=== PATIENT | female | born 1940 | race Caucasian/White ===

== ENCOUNTER 2021-01-24 13:50 | Outpatient (CLI) | payer MEDICARE, OTHER | END 2021-01-24 13:51 | disposition critical access hospital (66) | LOC: EMS 13:50 | DX: S09.90XA Unspecified injury of head, initial encounter (principal); W10.9XXA Fall (on) (from) unspecified stairs and steps, initial encounter | CPT/HCPCS: A0425; A0429 ==

== ENCOUNTER 2021-01-24 14:19 | Emergency (ER) | payer MEDICARE, OTHER ==
[2021-01-24 14:17] VITALS: BP 157/75
--- NOTE | 2021-01-24 14:43 | ED Physician Documentation ---
History of Present Illness - Stated complaint Stated Complaint: GLF/HEAD INJURY - Chief complaint Chief Complaint: Trauma Hd/Nk - Additonal information Additional information: 80-year-old female presents the emergency department as a modified trauma after ground-level fall. She was walking [place] the [place], tripped on her pants and fell backwards striking her head. She is anticoagulated on Eliquis secondary to a history of atrial flutter. She denies any loss of consciousness. She presents here in a rigid cervical collar. She is denying back neck pain leg pain or joint pain. Review of Systems Constitutional: denies: Fever, Chills Eyes: reports: Reviewed and negative Nose: reports: Reviewed and negative Throat: reports: Reviewed and negative Cardiac: reports: Reviewed and negative Respiratory: reports: Reviewed and negative GI: reports: Reviewed and negative : reports: Reviewed and negative Skin: reports: Laceration (s) (Posterior occiput) Musculoskeletal: denies: Neck pain, Back pain, Extremity pain, Joint pain, Extremity swelling Neurologic: reports: Head injury. denies: Generalized weakness, Numbness, Difficulty speaking, Syncope, Seizure, Confused, Headache, LOC PD PAST MEDICAL HISTORY - Allergies Allergies/Adverse Reactions: Allergies Allergy/AdvReac Type Severity Reaction Status Date / Time No Known Drug Allergies Allergy Verified 01/24/21 14:18 PD ED PE EXPANDED - General General: Alert, No acute distress, Well developed/nourished - Neck Neck: Supple w/out meningeal sx, No tenderness. No: Adenopathy, Soft tissue TTP, Bony TTP, Limited ROM - Cardiac Cardiac: Regular Rate, Radial strong equal, Pedal strong equal, Cap refill < 2 sec. No: Murmur Present - Respiratory Respiratory: Clear to ausultation odalis. No: Distress, Labored - Abdomen Abdomen: Normal Bowel sounds. No: Tender to palpation - Back Back: Normal exam. No: Vertebral tenderness, Soft tissue tenderness - Derm Derm: Laceration(s) (2 cm laceration posterior occiput) - Extremities Extremities: Normal. No: Deformity - Neuro Neuro: Alert and Oriented X 3, CNII-XII intact, CN deficit, Normal gait, Normal finger nose, Normal speech - GCS Eye Opening: Spontaneous Motor: Obeys Commands Verbal: Oriented Total: 15 Results - Vitals Vitals: Vital Signs - 24 hr 01/24/21 14:12 Temperature 36.0 C L Heart Rate 67 Respiratory 16 Rate Blood Pressure 157/75 H O2 Saturation 98 Oxygen O2 Source Room air - Rads (name of study) cervical spine Radiology: Final report received (No acute fracture or subluxation. Multilevel spondylolisthesis throughout the cervical spine likely degenerative. Moderate to severe multilevel degenerative disc disease) ct head Radiology: Final report received (No acute intracranial abnormality. Soft tissue laceration left posterior parietal scalp at the vertex without evidence of underlying fracture.) Procedures - Laceration (location) scalp laceration Length in cm: 2 Wound type: Irregular, Into subcut fat Wound preparation: Chlorhexadine, Irrigated copiously NS Skin layer closure: Parvin (2) Other: Patient tolerated well, No complications, Neurovascular intact PD MEDICAL DECISION MAKING - ED course Complexity details: reviewed results, re-evaluated patient, d/w patient ED course: 80-year-old female presents emergency department as a modified trauma after ground-level fall in which she tripped on her pants when exiting the golf club. She is on Eliquis secondary to history of atrial flutter. She did strike her head and sustained a 2 cm posterior scalp laceration. There was no loss of consciousness. She arrived with a rigid c-collar in place. She denied any headache no loss of consciousness and had no focal neuro deficits. Subsequent CT imaging of the head and cervical spine showed no acute fractures or findings of intracranial hemorrhage. Should be noted that she does have significant degenerative spine changes. Scalp laceration was closed with 2 parvin. Tetanus is up-to-date. Emergent worrisome return precautions discussed. Departure - Departure Disposition: 01 Home, Self Care Clinical Impression: Fall from ground level, Anticoagulated Occipital scalp laceration Qualifiers: Encounter type: initial encounter Qualified Code(s): S01.01XA - Laceration without foreign body of scalp, initial encounter Condition: Stable Record reviewed to determine appropriate education?: Yes Comments: Katarina fontanez are seen in the emergency department today after ground-level fall. Because you are on Eliquis were brought to the emergency department to rule out any bleeding in the brain. The CT scan of your neck and your head does not show any broken bones or bleeding within the brain. You did have a 2 cm posterior scalp laceration. This was closed with 2 parvin. The parvin should be removed in 5 days. This can be done at any urgent care, primary care office or the emergency department. You can shower normally. Apply thin layer of bacitracin after showering. If over the next few days you develop any sudden severe headache, have chest pain, slurred speech facial droop or feel suddenly weak then please return immediately to the ER for a second evaluation
--- NOTE | 2021-01-24 15:06 | CT Report ---
PROCEDURE: HEAD WO INDICATIONS: GLF; anticoagulated TECHNIQUE: Noncontrast 4.5 mm thick angled axial sections acquired from the foramen magnum to the vertex. For r adiation dose reduction, the following was used: automated exposure control, adjustment of mA and/or kV according to patient size. COMPARISON: None. FINDINGS: Image quality: There is mild motion artifact. CSF spaces: There is mild cerebral volume loss with prominence of the ventricles and sulci. Basal ci sterns are patent. No extra-axial fluid collections. Brain: No intracranial hemorrhage, mass, or mass effect. Cunningham-white matter interface is preserved. T here are subcortical and periventricular white matter hypodensities consistent with mild chronic smal l vessel ischemic changes. Skull and face: There is a soft tissue laceration in the left posterior parietal scalp at the vertex with associated subcutaneous hematoma. Calvarium and visualized facial bones are intact, without hammad picious lesions. Sinuses: Visualized sinuses and mastoids are clear. IMPRESSION: 1. No acute intracranial abnormality. 2. Soft tissue laceration in the left posterior parietal scalp at the vertex without evidence of unde rlying fracture. Reviewed by: Bertin Villasenor MD on 01/24/2021 2:05 PM [place] Approved by: Bertin Villasenor MD on 01/24/2021 2:05 PM [facility] Station ID: [id number]
--- NOTE | 2021-01-24 15:08 | CT Report ---
PROCEDURE: CERVICAL SPINE WO INDICATIONS: GLF; anticoagulated TECHNIQUE: Noncontrast 3 mm thick sections acquired from the skull base to the T4 level. Sagittal and coronal r eformats were then constructed. For radiation dose reduction, the following was used: automated exp osure control, adjustment of mA and/or kV according to patient size. COMPARISON: None. FINDINGS: Image quality: Excellent. Bones: No fractures or subluxation. There is straightening of the cervical lordosis. Mild anterolist hesis demonstrated at C2-C3, C3-C4, and C4-C5. There is minimal retrolisthesis at C5-C6. There is mul tilevel moderate to severe degenerative disc disease within the mid and lower cervical spine. Moderat e multilevel facet arthropathy also demonstrated throughout the cervical spine. Visualized superior r ibs are intact. Soft tissues: Prevertebral soft tissues are normal in thickness. No paravertebral hematomas. No ap ical pneumothoraces. IMPRESSION: 1. No acute fracture or subluxation. 2. Multilevel spondylolisthesis throughout the cervical spine likely degenerative in etiology. 3. Moderate to severe multilevel degenerative disc disease in the mid and lower cervical spine as wel l as moderate facet arthropathy throughout the cervical spine. Reviewed by: Bertin Villasenor MD on 01/24/2021 2:07 PM [facility] Approved by: Bertin Villasenor MD on 01/24/2021 2:07 PM [place] Station ID: [id number]
== END 2021-01-24 16:10 | disposition home or self-care (01) ==
LOC: ED 14:19
DX: S01.01XA Laceration without foreign body of scalp, initial encounter (principal); W01.0XXA Fall on same level from slipping, tripping and stumbling without subsequent striking against object, initial encounter; Y93.01 Activity, walking, marching and hiking; Y92.29 Other specified public building as the place of occurrence of the external cause; M43.12 Spondylolisthesis, cervical region; M50.30 Other cervical disc degeneration, unspecified cervical region; I48.92 Unspecified atrial flutter; Z79.01 Long term (current) use of anticoagulants
CPT/HCPCS: 12001; 99283; 99284

== ENCOUNTER 2021-01-29 12:32 | Emergency (ER) | payer MEDICARE, OTHER ==
[2021-01-29 12:42] VITALS: BP 158/66
--- NOTE | 2021-01-29 13:42 | ED Physician Documentation ---
History of Present Illness - Stated complaint Stated Complaint: STAPLE REMOVAL - Chief complaint Chief Complaint: General - History obtained from History obtained from: Patient (80-year-old woman presents for removal of 2 parvin from her scalp. She has not had any trouble with them.) Review of Systems Constitutional: reports: Reviewed and negative Eyes: reports: Reviewed and negative Ears: reports: Reviewed and negative PD PAST MEDICAL HISTORY - Allergies Allergies/Adverse Reactions: Allergies Allergy/AdvReac Type Severity Reaction Status Date / Time No Known Drug Allergies Allergy Verified 01/29/21 12:42 PD ED PE NORMAL - Vitals Vital signs reviewed: Yes - General General: Alert and oriented X 3, No acute distress - HEENT HEENT: PERRL, EOMI, Other (Healing wound on the left occiput with [address]) - Neck Neck: No bony TTP - Neuro Neuro: Alert and oriented X 3, Normal speech Results - Vitals Vitals: Vital Signs - 24 hr 01/29/21 12:39 Temperature 36.4 C L Heart Rate 65 Respiratory 16 Rate Blood Pressure 158/66 H O2 Saturation 97 Oxygen O2 Source Room air PD MEDICAL DECISION MAKING - ED course ED course: 2 parvin removed during exam without issue and counseled on ongoing wound care. Departure - Departure Disposition: 01 Home, Self Care Clinical Impression: Encounter for staple removal Condition: Stable
== END 2021-01-29 13:54 | disposition home or self-care (01) ==
LOC: ED 12:32
DX: Z48.02 Encounter for removal of sutures (principal)

== ENCOUNTER 2021-02-17 13:07 | Outpatient (CLI) | payer MEDICARE, OTHER ==
[2021-02-17 13:35] LABS: CALCIUM, IONIZED 1.2 mmol/L (1.15-1.33); VBG PH 7.386 (7.31-7.41)
[2021-02-17 13:42] LABS: CALCIUM 9.9 mg/dL (8.5-10.3); CREATININE 0.7 mg/dL (0.4-1.0); POTASSIUM 5.3 mmol/L (3.5-5.0)
== END 2021-02-17 13:08 | disposition home or self-care (01) ==
LOC: LAB.N 13:07
PROVIDERS: ATTEND Family Medicine
DX: R00.0 Tachycardia, unspecified (principal)
CPT/HCPCS: 36415; 80048; 82330

== ENCOUNTER 2022-09-05 11:30 | Outpatient (CLI) | payer MEDICARE, OTHER ==
[2022-09-05 17:43] LABS: BASOPHILS # (AUTO) 0.1 10^3/uL (0.0-0.1); BASOPHILS % (AUTO) 1.1 %; EOSINOPHILS # (AUTO) 0.1 10^3/uL (0.0-0.7); EOSINOPHILS % (AUTO) 1.9 %; HCT - HEMATOCRIT 42.6 % (37.0-47.0); HGB - HEMOGLOBIN 13.4 g/dL (12.0-16.0); LYMPHOCYTES % (AUTO) 19.5 %; MEAN CORPUSCULAR HEMOGLOBIN 30.1 pg (27.0-31.0); MEAN CORPUSCULAR HGB CONC 31.5 g/dL (32.0-36.0); MEAN CORPUSCULAR VOLUME 95.7 fL (81.0-99.0); MEAN PLATELET VOLUME 10.6 fL (7.9-10.8); MONOCYTES # (AUTO) 0.5 10^3/uL (0.0-1.0); MONOCYTES % (AUTO) 8.8 %; NEUTROPHILS # (AUTO) 3.6 10^3/uL (1.5-6.6); NEUTROPHILS % (AUTO) 68.5 %; PLT - PLATELET COUNT 285 10^3/uL (130-450); RED BLOOD COUNT 4.45 10^6/uL (4.20-5.40); RED CELL DISTRIBUTION WIDTH 13.2 % (12.0-15.0); WHITE BLOOD COUNT 5.2 x10^3/uL (4.8-10.8)
[2022-09-05 18:10] LABS: THYROID STIMULATING HORMONE 0.99 uIU/mL (0.34-5.60)
[2022-09-05 18:42] LABS: ALBUMIN 4.5 g/dL (3.2-5.5); ALBUMIN/GLOBULIN RATIO 1.4 (1.0-2.2); BILIRUBIN,TOTAL 0.7 mg/dL (0.2-1.0); CALCIUM 9.5 mg/dL (8.5-10.3); CREATININE 0.6 mg/dL (0.4-1.0); POTASSIUM 3.6 mmol/L (3.5-5.0); TOTAL PROTEIN 7.8 g/dL (6.7-8.2)
== END 2022-09-05 11:45 | disposition home or self-care (01) ==
LOC: LAB.N 11:30
PROVIDERS: ATTEND Registered Nurse
DX: R19.7 Diarrhea, unspecified (principal)
CPT/HCPCS: 36415; 80053; 83690; 84443; 85025

== ENCOUNTER 2022-10-15 09:56 | Emergency (ER) | payer MEDICARE, OTHER ==
[2022-10-15 10:09] VITALS: BP 149/75; O2SAT 97
--- NOTE | 2022-10-15 10:11 | ED Physician Documentation ---
PD HPI HEENT - Stated complaint Stated Complaint: LT EAR BLEEDING - Chief complaint Chief Complaint: Heent - History obtained from History obtained from: Patient PD PAST MEDICAL HISTORY - Present Medications Home Medications: Ambulatory Orders Medication Instructions Recorded Confirmed Amoxicillin 500 mg PO TID #21 cap 10/15/22 Cetirizine [ZyrTEC] 10 mg PO DAILY #15 tablet 10/15/22 Tobramycin 2 drops EACHEYE QID #5 ml 10/15/22 - Allergies Allergies/Adverse Reactions: Allergies Allergy/AdvReac Type Severity Reaction Status Date / Time No Known Drug Allergies Allergy Verified 10/15/22 10:01 PD ED PE NORMAL - General General: Alert and oriented X 3, Well developed/nourished - HEENT HEENT: Moist mucous membranes, Pharynx benign. No: Ears normal (right TM still normal color with fluid behind. Left canal with blood and some wax in it. TM with some blood 9 oclock area. Remainder of TM appears intact. No general redness. ) - Neck Neck: Supple, no meningeal sign, No adenopathy - Cardiac Cardiac: RRR, No murmur - Respiratory Respiratory: Clear bilaterally - Derm Derm: Normal color, Warm and dry Results - Vitals Vitals: Oxygen O2 Source Room air PD Medical Decision Making - ED course Complexity details: considered differential (has had URI symptoms and developed bilateral eye redness and some matting. Left ear pain and today with some bleeding from left ear. The exam of the ear has some wax/blood in mid canal and I did not want to irrigate it due to patient discomfort. I can see TM enough to see mainly intact, serous. ), d/w patient ED course: has had URI symptoms and now also with left ear pressure and bleeding, and some matting of eyes in addition to the redness for few days. Coinsider bacterial secondary infection of ear, though more clear fluid with some red blood. Similar eyes have been red most c/w viral conjunctivitis, but now having matting/drainage purulent. Can Rx oral abx and also to treat topical. Tried to simplify the choices so give Rx for eye drops to also use left ear canal. Departure - Departure Disposition: 01 Home, Self Care Clinical Impression: Upper respiratory infection, Otitis media, serous, TM rupture, Conjunctivitis Condition: Stable Record reviewed to determine appropriate education?: Yes Instructions: ED Otitis Media Acute Adult Follow-Up: Landry,Adilia A, MD [Primary Care Provider] - [facility] [Provider Group] Prescriptions: Amoxicillin 500 mg PO TID #21 cap Tobramycin 2 drops EACHEYE QID #5 ml Cetirizine [ZyrTEC] 10 mg PO DAILY #15 tablet Comments: The etiology of most of your symptoms are likely still viral although it is hard to tell if there is secondary bacterial involvement for the ear leading to pressure and partial rupture. There could potentially be some bacterial comp onent now to the eyes as well. As such we can go with amoxicillin 3 times daily for a week for bacterial infection (sinus). Also cetirizine antihistamine once or twice daily over the next week or 2. This is to decrease fluid pressure in the sinus and middle ear. Of what I can see of the eardrum at the moment, it does not look completely ruptured. I cannot identify all of it necessarily with swelling and some blood. It should heal up with taking care of the infection and fluid. You can follow-up with your primary care or ear nose and throat in about 2 to 3 weeks assuming you are feeling better from your symptoms. I will give timeframe for your ear to heal and see if it is healed well enough. Call for an appointment. For the eye and ear, you we can use tobramycin eyedrops 1 to 2 drops in both eyes several times daily and you could also do a couple of drops in the left ear several times daily. I sent your prescriptions to the [facility] in [place]. Forms: PCP List Discharge Date/Time: 10/15/22 11:30
[2022-10-15] MEDS ORDERED: AMOXICILLIN 250 MG CAPSULE PO STA (11:05)
== END 2022-10-15 11:30 | disposition home or self-care (01) ==
LOC: ED 09:56
DX: J06.9 Acute upper respiratory infection, unspecified (principal); H65.92 Unspecified nonsuppurative otitis media, left ear; H72.92 Unspecified perforation of tympanic membrane, left ear; H10.9 Unspecified conjunctivitis
CPT/HCPCS: 99282; 99284; A9270

== ENCOUNTER 2022-10-22 18:21 | Emergency (ER) | payer MEDICARE, OTHER ==
[2022-10-22 18:49] VITALS: BP 141/71; O2SAT 96
--- NOTE | 2022-10-22 20:56 | ED Physician Documentation ---
History of Present Illness - Stated complaint Stated Complaint: RT EAR CLOGGED - Chief complaint Chief Complaint: Heent - History obtained from History obtained from: Patient, Family - History of Present Illness Timing: Today Pain level max: 0 Pain level now: 0 - Additonal information Additional information: 82-year-old female presents to the emergency department complaining of decreased hearing out of her bilateral ears. She states that she was recently seen at [facility] and told she had earwax in the right ear. She was also recently diagnosed with an ear infection and a ruptured left tympanic membrane. There is still blood that comes out of the left ear occasionally. Has not followed up with ENT yet. No fevers. No chills. No vomiting. Review of Systems Constitutional: denies: Fever, Chills Skin: denies: Rash Musculoskeletal: denies: Neck pain, Back pain Neurologic: denies: Headache PD PAST MEDICAL HISTORY - Past Medical History Past Medical History: Yes - Present Medications Home Medications: Ambulatory Orders Medication Instructions Recorded Confirmed Amoxicillin 500 mg PO TID #21 cap 10/15/22 Cetirizine [ZyrTEC] 10 mg PO DAILY #15 tablet 10/15/22 Tobramycin 2 drops EACHEYE QID #5 ml 10/15/22 Amox/Clav 875/125 [Augmentin] 1 tab PO Q12H #20 tablet 10/22/22 - Allergies Allergies/Adverse Reactions: Allergies Allergy/AdvReac Type Severity Reaction Status Date / Time No Known Drug Allergies Allergy Verified 10/15/22 10:01 - Living Situation Living Situation: reports: With family Living Arrangement: reports: At home - Social History Does the pt have substance abuse?: No - Family History Family history: reports: Non contributory PD ED PE NORMAL - Vitals Vital signs reviewed: Yes - General General: Alert and oriented X 3, No acute distress - HEENT HEENT: PERRL, Moist mucous membranes, Other (Unable to visualize the left tympanic membrane secondary to blood in the canal. The right TM shows a small amount of effusion with dark coloration in the inferior aspect of the TM. The ear canal itself is clear.) - Neck Neck: Supple, no meningeal sign - Cardiac Cardiac: RRR - Respiratory Respiratory: No respiratory distress, Clear bilaterally - Derm Derm: Warm and dry - Neuro Neuro: Alert and oriented X 3 - Psych Psych: Normal mood, Normal affect Results - Vitals Vitals: Vital Signs - 24 hr 10/22/22 18:39 Temperature 36.3 C L Heart Rate 70 Respiratory 16 Rate Blood Pressure 141/71 H O2 Saturation 96 Oxygen O2 Source Room air - Rads (name of study) CT scan head. Relevant Findings:: Final report received, See rad report CT IAC Relevant Findings:: Final report received, See rad report PD Medical Decision Making - ED course Complexity details: considered differential, d/w patient ED course: The dark effusion behind the right ear was concerning for possible hemotympanum, therefore Noncon head CT was performed, this is negative. CT the scan of the internal auditory canals was performed, shows likely ruptured tympanic membranes and possible early mastoiditis. She is not tender over the mastoid clinically. No fevers. We will place her on Augmentin and have her follow-up closely with ENT for further care. She can try conductive hearing headphones to see if this helps with her hearing loss. Patient and family counseled regarding signs and symptoms for which I believe and urgent re-evaluation would be necessary. Patient with good understanding of and agreement to plan and is comfortable going home at this time This document was made in part using voice recognition software. While efforts are made to proofread this document, sound alike and grammatical errors may occur. Patient was also counseled to keep the ears clean, do not place anything in the ears and do not allow water in the ears. Departure - Departure Disposition: 01 Home, Self Care Clinical Impression: Ruptured ear drum Qualifiers: Laterality: left Qualified Code(s): H72.92 - Unspecified perforation of tympanic membrane, left ear Otitis media Qualifiers: Otitis media type: suppurative Chronicity: acute Laterality: right Recurrence: recurrent Spontaneous tympanic membrane rupture: with spontaneous rupture Qualified Code(s): H66.014 - Acute suppurative otitis media with spontaneous rupture of ear drum, recurrent, right ear Condition: Good Instructions: ED Rupture Eardrum Infec Follow-Up: [facility] [Provider Group] - Within 1 week Prescriptions: Amox/Clav 875/125 [Augmentin] 1 tab PO Q12H #20 tablet Comments: Please follow-up with ENT for further care. Take all antibiotics until gone. I have placed the reading of the CT scan below. Please take the copy of the CT scans with you as well. Your prescriptions were sent to [facility] in [place]. Bone-conduction hearing aid/headphones may help her hearing until her ears heal. PROCEDURE: IAC'S WO INDICATIONS: hearing loss, blood L aud canal, dark fluid R TM COMPARISON: None. TECHNIQUE: Noncontrast 0.6 mm thick direct axial and coronal sections acquired through each temporal bone separately. For radiation dose reduction, the following was used: automated expo sure control, adjustment of mA and/or kV according to patient size. FINDINGS: Image quality: Excellent. RIGHT: External auditory canal: Canal has a normal appearance. Middle ear: The ossicles are within normal limits. Thickened right tympanic membrane is seen. Small amount of fluid and debris is noted within the middle ear. Inner ear: Fluid is noted within the inner ear. Facial nerve appears normal throughout is course. Mastoids: Partial opacification of right mastoid air cell is seen. LEFT: External auditory canal: Small amount of fluid and debris is seen in left external auditory canal. Middle ear: The ossicles are within normal limits. No normal tympanic membrane is visualized. Fluid and soft tissue density within the middle ear is seen. Inner ear: Fluid opacifying in anterior structures are noted. Facial nerve appears normal throughout its course. Mastoids: Partial opacification of left mastoid air cells are seen. MISCELLANEOUS: Significant opacification of left maxillary sinus, bilateral sphenoid sinuses and ethmoid sinuses are seen. Visualized surrounding bones appear unremarkable. Visualized intracranial structures, including the cerebellopontine angle cisterns, appear normal. IMPRESSION: 1. Finding is concerning for ruptured left tympanic membrane and perforation involving right tympanic membrane, suggests ENT correlation. There is fluid and debris seen in bilateral auditory canal as above. 2. Partial opacification of bilateral mastoid air cells concerning for mastoiditis. 3. Suggestion of bilateral paranasal sinusitis. Forms: PCP List Discharge Date/Time: 10/22/22 22:16
--- NOTE | 2022-10-22 21:06 | CT Report ---
PROCEDURE: HEAD WO INDICATIONS: hemotympanum TECHNIQUE: Noncontrast 4.5 mm thick angled axial sections acquired from the foramen magnum to the vertex. For r adiation dose reduction, the following was used: automated exposure control, adjustment of mA and/or kV according to patient size. COMPARISON: 01/24/2021 FINDINGS: Image quality: Excellent. CSF spaces: Basal cisterns are patent. No extra-axial fluid collections. The ventricles are symmet gonzalo in size and shape. Brain: No intracranial bleeds or masses. There is cerebral volume loss for age, with resultant vent ricular and sulcal prominence. There are periventricular and deep white matter chronic small vessel ischemic changes. There is intracranial internal carotid artery atherosclerosis. Skull and face: Calvarium and visualized facial bones appear intact, without suspicious lesions. Sinuses: INDICATION of left maxillary sinus is seen. Moderate mucosal thickening in bilateral sphenoi d sinuses and ethmoid sinuses also noted. There is partial opacification of bilateral maxillary air c ells. IMPRESSION: 1. No CT evidence of acute intracranial abnormalities. 2. Finding is suggestive of bilateral paranasal sinusitis and mastoiditis new since 2020 study. Reviewed by: Lawrence Welch MD on 10/22/2022 9:05 PM PDT Approved by: Lawrence Welch MD on 10/22/2022 9:05 PM PDT Station ID: [id number]
[2022-10-22] MEDS ORDERED: AMOX/CLAV 875 MG/125 MG TABLET PO STA (21:10)
--- NOTE | 2022-10-22 21:14 | CT Report ---
PROCEDURE: IAC'S WO INDICATIONS: hearing loss, blood L aud canal, dark fluid R TM COMPARISON: None. TECHNIQUE: Noncontrast 0.6 mm thick direct axial and coronal sections acquired through each temporal bone separa tely. For radiation dose reduction, the following was used: automated exposure control, adjustment of mA and/or kV according to patient size. FINDINGS: Image quality: Excellent. RIGHT: External auditory canal: Canal has a normal appearance. Middle ear: The ossicles are within normal limits. Thickened right tympanic membrane is seen. Small amount of fluid and debris is noted within the middle ear. Inner ear: Fluid is noted within the inner ear. Facial nerve appears normal throughout is course. Mastoids: Partial opacification of right mastoid air cell is seen. LEFT: External auditory canal: Small amount of fluid and debris is seen in left external auditory canal. Middle ear: The ossicles are within normal limits. No normal tympanic membrane is visualized. Fluid a nd soft tissue density within the middle ear is seen. Inner ear: Fluid opacifying in anterior structures are noted. Facial nerve appears normal throughout its course. Mastoids: Partial opacification of left mastoid air cells are seen. MISCELLANEOUS: Significant opacification of left maxillary sinus, bilateral sphenoid sinuses and eth moid sinuses are seen. Visualized surrounding bones appear unremarkable. Visualized intracranial str uctures, including the cerebellopontine angle cisterns, appear normal. IMPRESSION: 1. Finding is concerning for ruptured left tympanic membrane and perforation involving right tympanic membrane, suggests ENT correlation. There is fluid and debris seen in bilateral auditory canal as ab ove. 2. Partial opacification of bilateral mastoid air cells concerning for mastoiditis. 3. Suggestion of bilateral paranasal sinusitis. Reviewed by: Lawrence Welch MD on 10/22/2022 9:13 PM PDT Approved by: Lawrence Welch MD on 10/22/2022 9:13 PM PDT Station ID: [id number]
== END 2022-10-22 22:16 | disposition home or self-care (01) ==
LOC: ED 18:21
DX: H66.014 Acute suppurative otitis media with spontaneous rupture of ear drum, recurrent, right ear (principal); H72.92 Unspecified perforation of tympanic membrane, left ear
CPT/HCPCS: 70450; 70480; 99283; 99284; A9270